=== PATIENT | female | born 1965 | race Caucasian/White ===

== ENCOUNTER 2021-04-09 12:32 | Outpatient (CLI) | payer OTHER | END 2021-04-09 23:59 | disposition home or self-care (01) | LOC: RAD 12:32 | PROVIDERS: ATTEND Physician Assistant Surgical | DX: S82.142A Displaced bicondylar fracture of left tibia, initial encounter for closed fracture (principal); M79.662 Pain in left lower leg; R22.42 Localized swelling, mass and lump, left lower limb; X58.XXXA Exposure to other specified factors, initial encounter; Y93.89 Activity, other specified; Y92.89 Other specified places as the place of occurrence of the external cause; Y99.8 Other external cause status ==